=== PATIENT | female | born 1965 | race Caucasian/White ===

== ENCOUNTER 2018-03-04 10:56 | Day surgery (SDC) | payer MEDICAID, SELFPAY ==
--- NOTE | 2018-02-28 11:05 | EKG12_ITS ---
Test Reason : PRE OP Blood Pressure : / mmHG Vent. Rate : 070 BPM Atrial Rate : 070 BPM P-R Int : 172 ms QRS Dur : 088 ms QT Int : 388 ms P-R-T Axes : 075 092 047 degrees QTc Int : 419 ms Normal sinus rhythm Rightward axis Borderline ECG Confirmed by CASEY MERINO ([id number]), photographic editor ELANA HOBSON ([id number]) on 03/11/2018 4:57:50 PM Referred By: Ishaan Ellison Confirmed By:CASEY MERINO
[2018-02-28 11:45] LABS: Hematocrit 40.5 % (37-47); Hemoglobin 13.2 g/dl (12.0-15.0); Mean Corp Hgb Conc 32.6 g/gl (32-36); Mean Corpuscular Hgb 28.9 pg (27.0-32.0); Mean Corpuscular Volume 88.8 fL (81-99); Mean Platelet Vol. 9.2 fl (6.2-12.0); Platelet Count 329 K/mm3 (150-450); RBC Distribution Width CV 13.5 % (11.6-14.6); RBC Distribution Width SD 43.6 fl (35.1-43.9); Red Blood Count 4.56 M/mm3 (4.2-5.4); White Blood Count 7.7 K/mm3 (4.4-11.0)
[2018-02-28 11:50] LABS: Scan Indicated on CBC? Y/N NO
[2018-02-28 12:13] LABS: Anion Gap 6 (5-15); BUN 8 mg/dL (7-18); BUN/Creat Ratio 10.4 RATIO (10-20); Calcium,Total 8.9 mg/dL (8.5-10.1); Chloride 106 mmol/L (98-107); Creatinine, Serum 0.77 mg/dL (0.55-1.02); EST Glomerular Filtration Rate 83 mL/min (>60); Est Glom Filt Rate - Afr Amer 100 mL/min (>60); Glucose 90 mg/dL (74-106); Sodium Level 140 mmol/L (136-145)
--- NOTE | 2018-03-04 10:56 | DT_ITS ---
This patient was seen during an EMR downtime March 04, 2018 - March 11, 2018. This patient may have a combination of paper and electronic documentation or all paper documentation. All documentation is viewable within the e-chart portion of [employer] for each patient visit.
--- NOTE | 2018-03-04 12:35 | RAD_ITS ---
STUDY: X-RAY - RIGHT ANKLE REASON FOR EXAM: ORIF right ankle TECHNIQUE: 2 fluoroscopic view(s) of the ankle. COMPARISON: None. FINDINGS: There is an orthopedic plate and screws transfixing a distal fibular fracture in anatomical alignment and position. 13.3 seconds of fluoroscopy time was used. Electronically Signed: Aroldo Miller MD at 14:15 EDT Tel , Service support , RAD/Ankle 2 Views
== END 2018-03-04 16:50 | disposition home or self-care (01) ==
LOC: SDC 03-06 12:28
PROVIDERS: Physician Assistant; Visit Provider Orthopaedic Surgery
PROC: (CPT 27792; principal; 2018-03-04 12:10)
DX: S82.61XA Displaced fracture of lateral malleolus of right fibula, initial encounter for closed fracture (principal); W19.XXXA Unspecified fall, initial encounter; Y93.9 Activity, unspecified; Y92.009 Unspecified place in unspecified non-institutional (private) residence as the place of occurrence of the external cause
CPT/HCPCS: 27792; 36415; 73600; 73610; 76000; 80048; 85027; 93005; C1713; J7120; J2405

== ENCOUNTER → 2020-01-22 13:42 | Outpatient (CLI) | payer SELFPAY ==
--- NOTE | 2020-01-22 13:47 | US_ITS ---
STUDY: ULTRASOUND OF THE FEMALE PELVIS - COMPLETE REASON FOR EXAM: Female, 54 years old. PELVIC PAIN LMP: The patient is postmenopausal. TECHNIQUE: Transabdominal TECHNICAL QUALITY: Adequate. COMPARISON: None. FINDINGS: The uterus is anteverted and is in a midline position. The uterus measures 7.8 cm x 5.3 cm x 4.2 cm. Normal uterine cervix. The endometrium is thickened and measures 12.5 mm in thickness, and is . There is no demonstrated endometrial mass. There is no demonstrated myometrial mass. I.U.D. - The patient does not have an I.U.D. The right ovary is visualized. The right ovary measures 1.9 cm x 1.3 cm x 1.0 cm. There is no right ovarian cyst or ovarian mass. There is no visualized right adnexal mass or complex lesion. There is normal arterial and normal venous vascularity. The left ovary is visualized. The left ovary measures 1.7 cm x 1.3 cm x 1.1 cm. There is no left ovarian cyst or ovarian mass. There is no visualized left adnexal mass or complex lesion. There is normal arterial and normal venous vascularity. There is no fluid in the cul-de-sac. US/Pelvic (Non ) IMPRESSION: Thickened endometrium. Electronically Signed: Paxton Woods, at 15:24 EDT , Service support ,
== END ==
PROVIDERS: PCP Family Medicine; Referring Provider Family Medicine; Visit Provider Family Medicine
DX: R93.89 Abnormal findings on diagnostic imaging of other specified body structures (principal); R10.2 Pelvic and perineal pain; Z78.0 Asymptomatic menopausal state
CPT/HCPCS: 76856

== ENCOUNTER → 2020-01-22 14:35 | Outpatient (CLI) | payer SELFPAY ==
[2020-01-22 15:05] LABS: Absolute Lymphocyte Count 2.18 X10^3/uL (0.83-4.51); Absolute Neutrophil Count 9.2 X10^3/uL (2.0-7.7); Basophil# 0.05 X10^3/uL; Basophil% 0.4 % (0-1); Eosinophils% 1.6 % (0-5); Hematocrit 41.6 % (37-47); Hemoglobin 13.2 g/dL (12.0-15.0); Lymphocyte # 2.18 X10^3/ul (4.0); Lymphocyte % 17.6 % (19-41); Mean Corp Hgb Conc 31.7 g/dL (32-36); Mean Corpuscular Hgb 28.3 pg (27.0-32.0); Mean Corpuscular Volume 89.1 fL (81-99); Mean Platelet Vol. 9.5 fl (6.2-12.0); Monocyte# 0.69 X10^3/uL; Monocyte% 5.6 % (0-10); NRBC Flagged by Analyzer 0 % (0-5); Neutrophil % 74.5 % (47-70); Platelet Count 315 K/mm3 (150-450); RBC Distribution Width CV 13.2 % (11.6-14.6); RBC Distribution Width SD 42.8 fl (35.1-43.9); Red Blood Count 4.67 M/mm3 (4.2-5.4); White Blood Count 12.4 K/mm3 (4.4-11.0)
[2020-01-22 15:36] LABS: Hemoglobin A1c 6.3 % (4.2-6.3)
[2020-01-22 15:48] LABS: AST(SGOT) 14 U/L (15-37); Alanine Aminotransfer ALT/SGPT 24 U/L (13-56); Albumin, Serum 3.8 g/dL (3.2-5.0); Alkaline Phosphatase 116 U/L (45-117); Anion Gap 5 (5-15); BUN 14 mg/dL (7-18); BUN/Creat Ratio 15.6 RATIO (10-20); Chloride 105 mmol/L (98-107); EST Glomerular Filtration Rate 69 mL/min (>60); Est Glom Filt Rate - Afr Amer 84 mL/min (>60); Globulin 3.8 g/dL (2.2-4.2); Glucose 88 mg/dL (74-106); Potassium 3.6 mmol/L (3.5-5.1); Protein, Total 7.6 g/dL (6.4-8.2); Sodium Level 138 mmol/L (136-145); Thyroid Stim Hormone (TSH) 0.76 uIU/mL (0.358-3.74)
== END ==
PROVIDERS: PCP Family Medicine; Visit Provider Family Medicine
DX: R10.9 Unspecified abdominal pain (principal)
CPT/HCPCS: 36415; 80053; 83036; 84443; 85025

== ENCOUNTER → 2020-02-02 | Outpatient (CLI) | payer SELFPAY ==
--- NOTE | 2020-02-02 | EMB_PTH ---
PATIENT: FIONA TRACY LOC: [facility]#:[id number] AGE/SX: 54/F ROOM: RE02/02/[address]: Dr. Edwin Smith MD : 1965 BED: DIS: 02/02/2020 SPEC #: [id number] RECD: 02/02/20 10:09 STATUS: BEULAH SHON #: [id number] NICOLE: 02/02/20 00:[address]: Edwin Smith DEPT: SURGICAL PATHOLOGY RECD BY: Uday Moses ENTERED: 02/03/20 10:10 SP TYPE: ENDOM BX/C WARREN DR: Dr. Florinda Vázquez MD Tissues: Endometrium, NOS Procedures: Surgery Specimen Level IV HEADER OPERATION: Endometrial biopsy PRE-OP DIAGNOSIS: N95.0 TISSUE SUBMITTED: Endometrial biopsy MICROSCOPIC DIAGNOSIS Endometrium, biopsy: Scant strips of benign superficial glandular mucosa. AM:shaheed 02/04/20 MICROSCOPIC DESCRIPTION Slides are reviewed. GROSS DESCRIPTION Received in fixative is one container labeled with the patient's name and designated EM biopsy. The specimen consists of multiple fragments of mendoza, hemorrhagic soft tissue that in aggregate measure 3 x 2.5 x 0.1 cm. The specimen is totally submitted in one cassette. / SJ:shaheed 02/03/20 TC:5 CPT: 42751
[2020-02-04 16:30] LABS: HPV Reflexed? NOT INDICATED
== END | disposition home or self-care (01) ==
PROVIDERS: PCP Family Medicine; Referring Provider Obstetrics & Gynecology; Visit Provider Obstetrics & Gynecology
DX: Z12.4 Encounter for screening for malignant neoplasm of cervix (principal)
CPT/HCPCS: 88175; 88305; G0145

== ENCOUNTER → 2020-02-16 08:34 | Outpatient (CLI) | payer SELFPAY ==
--- NOTE | 2020-02-16 08:47 | BI_ITS ---
MAMMOGRAPHY - BILATERAL SCREENING REASON FOR EXAM: Female, 55 years old. Routine annual screening examination. PERTINENT HISTORY: Sister with breast cancer. TECHNIQUE: Digital bilateral breast andreea (3D mammographic acquisition) in the CC and MLO projections. 2-D mediolateral oblique (MLO) and craniocaudad (CC) views of both breasts were obtained. CAD: Full Field Digital Mammography with Computer Added Detection was performed. COMPARISON: Comparison is made with prior outside examination dated July 14, 2014. FINDINGS: Breast Composition: There are scattered areas of fibroglandular density. There are no dominant masses or suspicious calcifications. No other significant abnormalities are identified. There has been no significant change since the prior study. BI/SCREEN MAMM (CAD) W/ANDREEA BILAT IMPRESSION: Stable bilateral screening mammogram. Yearly follow-up mammogram recommended. (A) ASSESSMENT CATEGORY: BIRADS Category 1: Negative. A letter regarding these results will be sent to the patient by the facility within 30 days. Approximately 10% of breast cancers are not detected by mammography. A normal mammogram should not delay biopsy of a clinically suspicious abnormality. [id number] Electronically Signed: Paxton Woods, at 10:51 EDT , Service support ,
== END ==
PROVIDERS: PCP Family Medicine; Referring Provider Obstetrics & Gynecology; Visit Provider Obstetrics & Gynecology
DX: Z12.31 Encounter for screening mammogram for malignant neoplasm of breast (principal)
CPT/HCPCS: 77063; 77067

== ENCOUNTER 2020-02-26 05:58 | Day surgery (SDC) | payer SELFPAY ==
[2020-02-20 17:14] LABS: Hematocrit 42.2 % (37-47); Hemoglobin 13.3 g/dL (12.0-15.0); Mean Corp Hgb Conc 31.5 g/dL (32-36); Mean Corpuscular Hgb 28.6 pg (27.0-32.0); Mean Corpuscular Volume 90.8 fL (81-99); Mean Platelet Vol. 9.6 fl (6.2-12.0); Platelet Count 362 K/mm3 (150-450); RBC Distribution Width CV 13.2 % (11.6-14.6); RBC Distribution Width SD 43.7 fl (35.1-43.9); Red Blood Count 4.65 M/mm3 (4.2-5.4); White Blood Count 10.1 K/mm3 (4.4-11.0)
[2020-02-20 17:24] LABS: Prothrombin Time (Protime)PT. 12.7 SECONDS (11.7-14.9)
[2020-02-20 18:24] LABS: ALB/GLOB Ratio 0.9 RATIO (0.9-2.4); AST(SGOT) 14 U/L (15-37); Alanine Aminotransfer ALT/SGPT 23 U/L (13-56); Albumin, Serum 3.7 g/dL (3.2-5.0); Alkaline Phosphatase 108 U/L (45-117); Anion Gap 5 (5-15); BUN 14 mg/dL (7-18); BUN/Creat Ratio 17.1 RATIO (10-20); Chloride 106 mmol/L (98-107); Creatinine, Serum 0.82 mg/dL (0.55-1.02); EST Glomerular Filtration Rate 77 mL/min (>60); Est Glom Filt Rate - Afr Amer 93 mL/min (>60); Globulin 3.9 g/dL (2.2-4.2); Glucose 90 mg/dL (74-106); Potassium 3.9 mmol/L (3.5-5.1); Protein, Total 7.6 g/dL (6.4-8.2); Sodium Level 140 mmol/L (136-145)
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
[2020-02-26] VITALS (9 sets, daily range): BP systolic 107–120; BP diastolic 73–80; PULSE 73–88; RESP 14–18; TEMP 36–36.6; O2SAT 95–97; BMI 40.9
--- NOTE | 2020-02-26 | EMB_PTH ---
PATIENT: FIONA TRACY LOC: [facility] U#:[id number] AGE/SX: 55/F ROOM: RE02/26/[address]: Dr. Edwin Smith MD : 1965 BED: DIS: 02/26/2020 SPEC #: [id number] RECD: 02/26/20 10:50 STATUS: BEULAH BAUTISTARufina #: [id number] NICOLE: 02/26/20 00:[address]: Edwin Smith DEPT: SURGICAL PATHOLOGY RECD BY: Uday Moses ENTERED: 02/26/20 10:50 SP TYPE: ENDOM BX/C WARREN DR: Dr. Florinda Vázquez MD Tissues: Endometrium, NOS Procedures: Surgery Specimen Level IV HEADER OPERATION: Hysteroscopy, D & C PRE-OP DIAGNOSIS: Abnormal findings on diagnostic imaging TISSUE SUBMITTED: Endometrial curettings MICROSCOPIC DIAGNOSIS Endometrium, curettings: Weakly proliferative endometrium with focal cystic change. Fragments of lower uterine endometrium and endocervix with benign cystic change. AM:shaheed 02/27/20 COMMENT Reference is made to the patient's previous endometrial biopsy ([id number]) in which scant strips of benign superficial glandular mucosa was identified. MICROSCOPIC DESCRIPTION Slides are reviewed. GROSS DESCRIPTION Received in fixative is one container labeled with the patient's name and designated endometrial curettings. The specimen consists of multiple fragments of mendoza-pink polypoid tissue. The largest polypoid tissue measures 2.5 x 1 x 0.5 cm. The smaller fragment mixed with mendoza-pink tissue measures in aggregate 2 x 1.5 x 0.3 cm. The entire specimen is submitted in two cassettes as follows: 1 - largest polypoid piece of tissue bisected, 2 - rest of the specimen. / CAITLIN:shaheed 02/26/20 TC:5 CPT: 31678
[2020-02-26] MEDS: Lactated Ringers 1,000 ML 100 ML IV (06:39)
--- NOTE | 2020-02-26 07:28 | PCM.OPRPT ---
Report of Operation Date of Procedure: 02/26/20 Pre-Operative Diagnosis: Postmenopausal Patient with Thickened Endometrial Lining Post-Operative Diagnosis: Endometrial Polyp Surgery/Procedure Performed:: Diagnostic Hysteroscopy, Dilation and Curettage Description of Surgical Findings:: 8 cm endometrial cavity with 2 cm endometrial polyp. Cervix which was high in vagina which would make laparoscopic-assisted vaginal hysterectomy difficult but robotic assisted vaginal hysterectomy possible if hysterectomy were needed. Type of Anesthesia:: MAC Anesthesiologist: Yung Chou Specimen's removed: Endometrial curettings Estimated Blood Loss (mL): Minimal Fluids Replaced: Crystalloid Description of Procedure: Surgeon: Edwin Smith MD, FACOG Indications: This is a 55 year old patient who has the above diagnosis. The patient has been counseled regarding the risk and indications of this procedure including the possibility of bleeding, infection, and injury to surrounding structures such as bowel bladder. All questions were answered and we consider the patient well-informed. Procedure: The patient was taken to the operating room where after induction of general anesthesia, she was placed in the dorsolithotomy position and prepped and draped in the usual sterile fashion. Anterior cervix was grasped with the tenaculum and dilated to about 4-5 mm. A 3 mm hysteroscope was placed in the uterus of the above findings were noted. Cervix was dilated to about 7-8 mm and uterus was gently curetted removing all contents. Hysteroscope was reinserted and all material was noted to be removed. In the course of the procedure approximately 100 cc of saline distending media was used and virtually all of this was recovered. Patient tolerated procedure well was taken to recovery room in satisfactory condition sponge instrument and needle counts were all reportedly correct. Estimated blood loss for the case was minimal. Specimens to pathology was endometrial curettings Complications: None Grafts/Implants Used: None - Complications None - Admit VTE Documentation VTE Present on Admission: Yes VTE Mechan Device Prophylaxis: SCD's
--- NOTE | 2020-02-26 07:31 | DCINST_ITS ---
Discharge Diet: No Restrictions Discharge Activity: Return to Normal Activity, May Shower, May Take a Tub Bath - in 2 weeks. May resume sexual activity in: 1-2 weeks Call your doctor if you observe: Fever of 101 or Higher, Inability to urinate, Inability to have a bowel movement, Using more than one pad per hour Allergies/Adverse Reactions: Allergies No Known Allergies Allergy (Verified 02/19/20 08:46) Medications to take at Discharge Calcium Carbonate [Calcium] 1,000 mg PO DAILY 02/19/20 Primary Care Physician: Florinda Vázquez MD [Primary Care Provider] - Test Results: Test results from this visit will be discussed in further detail at your follow- up appointment, if applicable. Please Follow Up With: Edwin Smith MD When: 2 to 3 weeks
[2020-02-26] MEDS: Lubricating Jelly 60 GM Tube 30 GM TOPICAL (07:41)
== END 2020-02-26 09:06 | disposition home or self-care (01) ==
LOC: SDC 06:00 → AC 06:00
PROVIDERS: PCP Family Medicine; Referring Provider Obstetrics & Gynecology; Visit Provider Obstetrics & Gynecology
PROC: 0UDB8ZZ Extraction of Endometrium, Via Natural or Artificial Opening Endoscopic (ICD-10-PCS; CPT 58558; principal; 2020-02-26 07:20)
DX: N84.0 Polyp of corpus uteri (principal); Z78.0 Asymptomatic menopausal state; Z11.59 Encounter for screening for other viral diseases
CPT/HCPCS: 58558; 36415; 80053; 85027; 85610; 85730; 86850; 86900; 86901; 87635; 88305; G2023; J7120; J2405; U0004

== ENCOUNTER → 2022-08-29 | Outpatient (CLI) | payer SELFPAY ==
[2022-09-04 20:40] LABS: HPV APTIMA, High Risk Negative (Negative)
== END | disposition home or self-care (01) ==
PROVIDERS: PCP Family Medicine; Visit Provider Obstetrics & Gynecology
DX: Z12.4 Encounter for screening for malignant neoplasm of cervix (principal); Z78.0 Asymptomatic menopausal state
CPT/HCPCS: 87624; 88175; G0145

== ENCOUNTER → 2022-09-15 | Outpatient (CLI) | payer SELFPAY ==
--- NOTE | 2022-09-15 09:03 | BI_ITS ---
MAMMOGRAPHY - BILATERAL SCREENING REASON FOR EXAM: Female, 57 years old. Routine annual screening examination. PERTINENT HISTORY: Sisters with breast cancer. TECHNIQUE: Digital bilateral breast andreea (3D mammographic acquisition) in the CC and MLO projections. 2-D mediolateral oblique (MLO) and craniocaudad (CC) views of both breasts were obtained. CAD: Full Field Digital Mammography with Computer Added Detection was performed. COMPARISON: Comparison is made with prior study dated 02/16/2020. FINDINGS: Breast Composition: There are scattered areas of fibroglandular density. There are no dominant masses or suspicious calcifications. No other significant abnormalities are identified. There has been no significant change since the prior study. BI/SCRN MAMM (CAD)W/ANDREEA BILAT IMPRESSION: Stable bilateral screening mammogram. Yearly follow-up mammogram recommended. (A) ASSESSMENT CATEGORY: BIRADS Category 1: Negative. A letter regarding these results will be sent to the patient by the facility within 30 days. Approximately 10% of breast cancers are not detected by mammography. A normal mammogram should not delay biopsy of a clinically suspicious abnormality. [id number] Electronically Signed: Paxton Woods MD at 10:51 EST ,
== END | disposition home or self-care (01) ==
PROVIDERS: PCP Family Medicine; Visit Provider Obstetrics & Gynecology
DX: Z12.31 Encounter for screening mammogram for malignant neoplasm of breast (principal); Z80.3 Family history of malignant neoplasm of breast
CPT/HCPCS: 77063; 77067

== ENCOUNTER → 2022-10-24 | Outpatient (CLI) | payer SELFPAY ==
[2022-10-24 10:20] LABS: Anion Gap 5 (5-15); BUN 15 mg/dL (7-18); BUN/Creat Ratio 14.4 RATIO (10-20); Chloride 106 mmol/L (98-107); Creatinine, Serum 1.04 mg/dL (0.55-1.02); EST Glomerular Filtration Rate 58 mL/min (>60); Est Glom Filt Rate - Afr Amer 70 mL/min (>60); Glucose 118 mg/dL (74-106); Potassium 3.9 mmol/L (3.5-5.1); Sodium Level 139 mmol/L (136-145)
== END | disposition home or self-care (01) ==
PROVIDERS: PCP Family Medicine; Referring Provider Urology; Visit Provider Urology
DX: R10.9 Unspecified abdominal pain (principal)
CPT/HCPCS: 36415; 80048

== ENCOUNTER → 2022-11-07 | Outpatient (CLI) | payer SELFPAY ==
--- NOTE | 2022-11-07 15:54 | CT_ITS ---
INDICATION: L FLANK PAIN. PRIOR APPY AND TUBAL LIGATION EXAMINATION: CT ABDOMEN AND PELVIS WITH AND WITHOUT CONTRAST - CT Abdomen And Pelvis WO/W Contrast Injection TECHNIQUE: Helically acquired images were obtained of the abdomen and pelvis both before and after IV contrast. A radiation dose optimization technique was used for this scan. IV Contrast dosage and agent: 97 mL Isovue 300 Oral contrast: Redicat COMPARISON: None. FINDINGS: LOWER CHEST: Lung bases are clear. No cardiomegaly or pericardial effusion. LIVER: Homogeneous. No focal mass. GALLBLADDER AND BILIARY TREE: Several calcified gallstones. No gallbladder distension or wall edema. No intra- or extrahepatic biliary ductal dilation. PANCREAS: No focal cystic or solid mass. SPLEEN: Normal size without focal cystic or solid mass. ADRENAL GLANDS: Small left adrenal adenoma. KIDNEYS AND URETERS: Normal renal size and position. Bilateral extrarenal pelves. No hydronephrosis. PERITONEUM: No ascites or free air. No other fluid collection. BOWEL: Prior appendectomy. No stomach or bowel distension. Enteric contrast reaches the hepatic flexure. No focal inflammatory change. LYMPH NODES: No enlarged mesenteric or retroperitoneal lymph nodes. VESSELS: Aorta is non-dilated. URINARY BLADDER: Unremarkable. REPRODUCTIVE ORGANS: No pelvic masses. ABDOMINAL WALL: No discrete abdominal or pelvic wall hernia. BONES: Focal ossification of the anterior longitudinal ligament at L5 and S1. Normal thoracolumbar vertebral alignment. CT/CT Abd/Pelvis W/WO Contrast IMPRESSION: No finding to explain left flank pain. No acute abnormal finding the abdomen or pelvis. Electronically Signed: Neville Kline MD at 23:16 EST ,
== END | disposition home or self-care (01) ==
LOC: CT 15:53
PROVIDERS: PCP Family Medicine; Referring Provider Urology; Visit Provider Urology
DX: R10.32 Left lower quadrant pain (principal)
CPT/HCPCS: 74178

== ENCOUNTER → 2023-11-05 | Outpatient (CLI) | payer OTHER, SELFPAY ==
[2023-11-05 10:48] LABS: Mucous, Urine 0 SEEN /hpf (<or=2+)
--- OUTSIDE RECORDS SUMMARY | 2023-11-05 10:49 | XMS RPT_ITS | CCD ---
Author Name Unknown Address [address] [place] [address] Organization [facility] Care Team Providers Care Nut Sorter Name Role Phone YEH, NIKOLASWAN Unavailable Unavailable YEH, MARWAN Unavailable Unavailable NO, DOCTOR ON Unavailable Unavailable YEH, MARWAN Unavailable Unavailable NO, DOCTOR ON Unavailable Unavailable JANAS, FILIBERTO PAC Unavailable Unavailable JANAS, FILIBERTO PAC Unavailable Unavailable JANAS, FILIBERTO PAC Unavailable Unavailable NO, DOCTOR ON Unavailable Unavailable Results Test Name Value Interpretation Reference Range Facil ity Encounters Encounter Date Encounter Type Care Provider Facility Start: 04-09-2018 Ambulatory FILIBEROT MARKS [facility] Start: 02-23-2018 End: 02-23-2018 Emergency department patient visit NOEL YEH [facility] Payers Date Payer Category Payer Policy ID Unknown [id number] Summary Purpose Family History No Family History Records Found Advance Directives No Advanced Directives Records Found Additional Source Comments INFORMATION SOURCE (unrecogn ized section and content) FOR RECORDS PERTAINING TO PATIENTS WHO ARE OR HAVE BEEN ENROLLED IN A CHEMICAL DEPENDENCY/SUBSTANCEABUSE PROGRAM, SOME INFORMATION MAY BE OMITTED. This clinical summary was aggregated from multiple sources. Caution should be exercised in using it in the provision of clinical care. This summary normalizes information from multiple sources, and as a consequence, information in this document may materially change the coding, format and clinical context of patient data. In addition, data may be omitted in some cases. CLINICAL DECISIONS SHOULD BE BASED ON THE PRIMARY CLINICAL RECORDS. [employer] provides no warranty or guarantee of the accuracy or completeness of information in this document.
[2023-11-05 10:58] LABS: Color, Urine Yellow (Yellow); Glucose, Dipstick Normal (Normal); Ketone-Dipstick Negative (Negative); Leukocyte Esterase-Dipstick 100 /ul (Negative); Nitrite-Dipstick Negative (Negative); Occult Blood-Urine 10 /ul (Negative); Protein-Dipstick Negative (Negative); Specific Gravity, Urine 1.015 (1.002-1.030); Urine Bilirubin Dipstick Negative (Negative); Urine Clarity Sl. Cloudy (Clear); Urine Urobilinogen Normal (Normal)
[2023-11-05 11:26] LABS: Bacteria 1+ /hpf (None Seen); Red Blood Cells-Urine 0-5 SEEN /hpf (0-5); Squamous Epithelial Cells - UA 0-5 SEEN /hpf (5-10); White Blood Cells 10-25 SEEN /hpf (0-5)
== END | disposition home or self-care (01) ==
LOC: LABSPEC 10:11
PROVIDERS: PCP Family Medicine; Referring Provider Physician Assistant; Visit Provider Physician Assistant
DX: R30.0 Dysuria (principal)
CPT/HCPCS: 81001; 87077; 87086; 87088; 87186

== ENCOUNTER 2024-01-18 13:47 | Emergency (ER) | payer OTHER, SELFPAY ==
[2024-01-18 13:49] VITALS: BP 111/62; PULSE 115; RESP 18; TEMP 35.9; O2SAT 99; BMI 38.9
--- NOTE | 2024-01-18 14:43 | EX.ED.DYSGE1 ---
HPI History of Present Illness Chief Complaint: Abd Pain Informant: patient Narrative Narrative: 58-year-old female presenting to the emergency room with diarrhea. Patient states on January 06 she began to have chills and diarrhea along with nausea. She states it persisted for days seem to get slowly better but has returned. She notes lower abdominal discomfort but mostly on the left side. She describes the stool as green currently. No fevers. No known sick contacts. Patient denies any history of inflammatory bowel conditions or diverticulitis. She has not had prior cholecystectomy. PFSH PFSH Medical History no medical history Home Medications calcium carbonate 1,000 mg PO DAILY 02/19/20 [History Last Taken Unknown] ciprofloxacin HCl 500 mg tablet 500 mg PO BID #14 tabs 11/05/23 [Rx Last Taken Unknown] Allergy/AdvReac Type Severity Reaction Status Date / Time No Known Allergies Allergy Verified 01/18/24 13:49 Social History Smoking Status: Never smoker ROS ROS ED Constitutional Constitutional ED: Reports chills; Denies fever(s) or weight loss Eyes Eyes: Denies change in vision or diplopia ENT ENT ED: Denies ear pain, rhinorrhea or sore throat Cardiovascular Cardiovascular: Denies chest pain, orthopnea, palpitations or racing heartbeat Respiratory/Chest Respiratory/Chest: Denies cough, dyspnea or orthopnea Gastrointestinal Gastrointestinal: Reports abdominal pain, diarrhea and nausea; Denies vomiting Genitourinary Genitourinary ED: Denies dysuria, hematuria or urinary frequency Musculoskeletal Musculoskeletal: Denies arthralgias or myalgias Integumentary Denies abscess or rash Neurologic Neurologic: Denies headache(s) or weakness Psychiatric Psychiatric: Denies anxiety, depression, suicidal ideation or suicidal thoughts Endocrine Endocrinology: Denies polydipsia, polyphagia or polyuria Allergic/Immunologic Allergic/Immunologic ED: Denies mouth swelling, tongue swelling or urticaria EXAM Physical Exam Const Vital Signs: 01/18/24 13:49 01/18/24 15:48 01/18/24 17:00 Temperature 96.7 F L Temperature Source Temporal Pulse Rate 115 H 89 90 Respiratory Rate 18 16 16 Blood Pressure 111/62 112/74 Blood Pressure Mean 78 86 Pulse Ox 99 97 98 Oxygen Delivery Method Room Air Room Air Room Air Positive well nourished and well developed General Appearance ED: well developed HEENT Reports normocephalic, head/scalp atraumatic and dry mucous membranes Mouth ED: Yes dry mucous membranes Mouth: dry mucous membranes Eyes PERRL and EOMs intact bilaterally Neck no lymphadenopathy, supple and no JVD Resp normal respiratory effort and clear to auscultation bilaterally Cardio regular rate, regular rhythm and no murmurs Rate: tachycardic GI normal to inspection, nondistended, normoactive bowel sounds and non-tender Palpation: soft Back/Spine no CVA tenderness and normal ROM Extremity normal to inspection General Extremety ED: Negative for edema General Extremity: Negative for edema Neuro oriented x3 and CN's II-XII intact bilaterally Sensorium / Orientation: alert Motor Exam: strength 5/5 throughout Psych mental status grossly normal Mood & Affect: Negative for depressed or tearful Skin no rashes or lesions noted and no wounds MDM MDM MDM Narrative Medical decision making narrative: Patient received IV fluids. White count is 16. Hemoglobin 16.4 platelet count of 497. BUN of 18 creatinine 0.95. Lipase of 28 liver enzymes normal urinalysis with 150 ketones 2+ bacteria. She is not having dysuria there is 0-5 white cells [address] of the pelvis demonstrate any obvious colonic thickening or pericolonic inflammation. Patient received a dose of oxycodone. She states that while it did help the abdominal pain she definitely did not like the way it made her feel and does not wish to have any at home. She was unable to provide us a stool specimen. She has been able to eat a little something while she was here. I wonder if she has norovirus with dehydration? At this point patient will be discharged home. Patient to return if worsening or not improving. History & Record Review Discussion w/independent historian: Patient Lab Data Attestation: I reviewed the patient's lab results. Labs: Laboratory Results - last 24 hr 01/18/24 01/18/24 14:55 15:05 WBC 16.0 H RBC 5.70 H Hgb 16.4 H Hct 49.8 H MCV 87.4 MCH 28.8 MCHC 32.9 RDW Std Deviation 41.9 RDW Coeff of Lei 13.2 Plt Count 497 H MPV 9.2 Immature Gran % (Auto) 0.400 Neut % (Auto) 74.7 H Lymph % (Auto) 20.0 Yancey % (Auto) 3.9 Eos % (Auto) 0.6 Baso % (Auto) 0.4 Absolute Neuts (auto) 11.9 H Absolute Lymphs (auto) 3.20 Nucleated RBC % 0 Sodium 139 Potassium 3.8 Chloride 105 Carbon Dioxide 25.0 Anion Gap 9 BUN 18 Creatinine 0.95 Estim Creat Clear Calc 77.20 Est GFR (MDRD) Af Amer 78 Est GFR (MDRD) Non-Af 64 BUN/Creatinine Ratio 19.0 Glucose 108 H Calcium 8.7 Total Bilirubin 0.50 Direct Bilirubin 0.18 AST 21 ALT 35 Alkaline Phosphatase 80 Total Protein 7.0 Albumin 3.3 Globulin 3.7 Albumin/Globulin Ratio 0.9 Lipase 28 Urine Color Yellow Urine Clarity Clear Urine pH 5.0 Ur Specific [place] 1.025 Urine Protein 15 H Urine Glucose (UA) Normal Urine Ketones 150 A* Urine Occult Blood Negative Urine Nitrite Negative Urine Bilirubin 1 H Urine Urobilinogen Normal Ur Leukocyte Esterase 100 H Urine RBC 0 SEEN Urine WBC 0-5 SEEN Ur Squamous Epith Cells 0-5 SEEN Urine Bacteria 2+ Urine Mucus 1+ Radiography Diagnostic Testing: Clinical Impression(s) from Imaging Studies Abdomen/Pelvis CT 01/18/24 15:53 IMPRESSION: No definitive evidence for small bowel obstruction or acute colitis.. Cholelithiasis without definitive evidence for acute cholecystitis Tiny left ovarian cyst Other findings as above Electronically Signed: Dylan Ortiz MD at 16:19 EDT Reading Location ID and State: [facility] / [place] Tel , Service support , Discharge Plan Triage Chief Complaint: Abd Pain ED Provider: Samson Coyle Dx/Rx/DC Orders Prescriptions: No Action ciprofloxacin HCl 500 mg tablet 500 mg PO BID Qty: 14 0RF calcium carbonate 500 MG tablet 1,000 mg PO DAILY Primary Care Provider: Florinda Vázquez Referrals: Florinda Vázquez MD [Primary Care Provider] -
[2024-01-18 15:05] LABS: Absolute Neutrophil Count 11.9 X10^3/uL (2.0-7.7); Basophil# 0.06 X10^3/uL; Basophil% 0.4 % (0-1); Eosinophils% 0.6 % (0-5); Hematocrit 49.8 % (37-47); Hemoglobin 16.4 g/dL (12.0-15.0); Mean Corp Hgb Conc 32.9 g/dL (32-36); Mean Corpuscular Hgb 28.8 pg (27.0-32.0); Mean Corpuscular Volume 87.4 fL (81-99); Mean Platelet Vol. 9.2 fl (6.2-12.0); Monocyte# 0.63 X10^3/uL; Monocyte% 3.9 % (0-10); NRBC Flagged by Analyzer 0 % (0-5); Neutrophil # 11.94 X10^3/uL (2.7-7.7); Neutrophil % 74.7 % (47-70); Platelet Count 497 K/mm3 (150-450); RBC Distribution Width CV 13.2 % (11.6-14.6); RBC Distribution Width SD 41.9 fl (35.1-43.9)
[2024-01-18] MEDS: Ondansetron 4 MG/2 ML Vial IV (15:05)
[2024-01-18] MEDS: 0.9% Normal Saline (1000mL) 1,000 ML 999 ML IV ×3 (15:05→18:03)
[2024-01-18 15:08] LABS: Red Blood Cells-Urine 0 SEEN /hpf (0-5)
[2024-01-18 15:11] LABS: Color, Urine Yellow (Yellow); Glucose, Dipstick Normal (Normal); Leukocyte Esterase-Dipstick 100 /ul (Negative); Nitrite-Dipstick Negative (Negative); Occult Blood-Urine Negative /ul (Negative); Protein-Dipstick 15 mg/dl (Negative); Specific Gravity, Urine 1.025 (1.002-1.030); Urine Clarity Clear (Clear); Urine Urobilinogen Normal (Normal)
[2024-01-18 15:13] LABS: Urine Bilirubin Dipstick 1 mg/dL (Negative)
[2024-01-18 15:14] LABS: Ketone-Dipstick 150 mg/dl (Negative)
[2024-01-18 15:20] LABS: Bacteria 2+ /hpf (None Seen); Squamous Epithelial Cells - UA 0-5 SEEN /hpf (5-10); White Blood Cells 0-5 SEEN /hpf (0-5)
[2024-01-18 15:21] LABS: Mucous, Urine 1+ /hpf (<or=2+)
[2024-01-18 15:44] LABS: ALB/GLOB Ratio 0.9 RATIO (0.9-2.4); AST(SGOT) 21 U/L (15-37); Alanine Aminotransfer ALT/SGPT 35 U/L (13-56); Albumin, Serum 3.3 g/dL (3.2-5.0); Alkaline Phosphatase 80 U/L (45-117); Anion Gap 9 (5-15); BUN 18 mg/dL (7-18); Bilirubin, Direct 0.18 mg/dL (0.00-0.30); Calcium,Total 8.7 mg/dL (8.5-10.1); Chloride 105 mmol/L (98-107); Creatinine, Serum 0.95 mg/dL (0.55-1.02); EST Glomerular Filtration Rate 64 mL/min (>60); Est Glom Filt Rate - Afr Amer 78 mL/min (>60); Globulin 3.7 g/dL (2.2-4.2); Glucose 108 mg/dL (74-106); Lipase 28 U/L (13-75); Potassium 3.8 mmol/L (3.5-5.1); Sodium Level 139 mmol/L (136-145)
[2024-01-18 15:48] VITALS: PULSE 89; RESP 16; O2SAT 97
--- NOTE | 2024-01-18 15:53 | CT_ITS ---
STUDY: CT ABDOMEN AND PELVIS WITH CONTRAST REASON FOR EXAM: Female, 58 years old. colitis RADIATION DOSAGE (If Supplied By Facility): CTDIvol = ( 19.28 ) mGy, DLP = ( 1181.43 ) mGycm TECHNIQUE: Transaxial images were obtained from the dome of the diaphragm to the symphysis pubis without oral contrast. IV 100mL Isovue-300 was administered. Sagittal and coronal images were reconstructed. Individualized dose optimization techniques were used for this CT. COMPARISON: November 07, 2022 FINDINGS: There is minor atelectasis within the dependent portion of the lungs.. The visualized portions of the heart are within normal limits. Mild nonspecific fatty infiltrated liver without mass or bile duct dilatation. Multiple calcified gallstones without evidence for acute cholecystitis Normal spleen. Normal pancreas. Right adrenal is normal. There is a small nodule left adrenal which is slightly hyperattenuated measuring 2.2 x 1.17 cm likely benign unchanged since previous exam Normal right kidney. Normal left kidney. Normal visualized stomach. Normal small intestine. Examination of the colon is limited due to lack of contrast opacification and diffuse collapse of the bowel loops... There is no significant thickening of the hankins of the colon at this time nor is there evidence for inflammatory changes in the fat to suggest colitis. Chronic colitis is not entirely excluded. No evidence for acute appendicitis. Normal abdominal aorta. Normal inferior vena cava. Normal retroperitoneum. Normal urinary bladder. Tiny left ovarian cyst noted Normal abdominal wall. Lumbar spine demonstrates mild spondylosis CT/Abdomen/Pelvis W IV Cont ONLY IMPRESSION: No definitive evidence for small bowel obstruction or acute colitis.. Cholelithiasis without definitive evidence for acute cholecystitis Tiny left ovarian cyst Other findings as above Electronically Signed: Dylan Ortiz MD at 16:19 EDT ,
[2024-01-18] MEDS: oxyCODONE 5 MG Tablet PO (16:46)
[2024-01-18 17:00] VITALS: BP 112/74; PULSE 90; RESP 16; O2SAT 98
[2024-01-18 19:21] VITALS: BP 117/68; PULSE 92; RESP 16; TEMP 36.1; O2SAT 93
== END 2024-01-18 19:26 | disposition home or self-care (01) ==
PROVIDERS: Emergency Provider Emergency Medicine; PCP Family Medicine; Visit Provider Emergency Medicine
DX: R19.7 Diarrhea, unspecified (principal); R10.32 Left lower quadrant pain
CPT/HCPCS: 74177; 80053; 81001; 82248; 83690; 85025; 96361; 96374; 99283; J7030; Q9967; A4216; J2405

== ENCOUNTER → 2024-01-23 | Outpatient (CLI) | payer OTHER, SELFPAY | END | disposition home or self-care (01) | LOC: LABSPEC 13:13 | PROVIDERS: PCP Family Medicine; Referring Provider Family Medicine; Visit Provider Family Medicine | DX: R19.7 Diarrhea, unspecified (principal) | CPT/HCPCS: 83630; 87177; 87209; 87493; 87506 ==

== ENCOUNTER → 2024-02-12 | Outpatient (CLI) | payer OTHER, SELFPAY ==
--- NOTE | 2024-02-12 10:01 | BI_ITS ---
MAMMOGRAPHY - BILATERAL SCREENING REASON FOR EXAM: Female, 58 years old. Routine annual screening examination. PERTINENT HISTORY: Sisters with breast cancer. TECHNIQUE: Digital bilateral breast andreea (3D mammographic acquisition) in the CC and MLO projections. 2-D mediolateral oblique (MLO) and craniocaudad (CC) views of both breasts were obtained. CAD: Full Field Digital Mammography with Computer Added Detection was performed. COMPARISON: Comparison is made with prior study dated September 15, 2022 and February 16, 2020. FINDINGS: Breast Composition: There are scattered areas of fibroglandular density. There are no dominant masses or suspicious calcifications. No other significant abnormalities are identified. There has been no significant change since the prior study. BI/SCRN MAMM (CAD)W/ANDREEA BILAT IMPRESSION: Stable bilateral screening mammogram. Yearly follow-up mammogram recommended. (A) ASSESSMENT CATEGORY: BIRADS Category 1: Negative. A letter regarding these results will be sent to the patient by the facility within 30 days. Approximately 10% of breast cancers are not detected by mammography. A normal mammogram should not delay biopsy of a clinically suspicious abnormality. [id number] Electronically Signed: Paxton Woods MD at 12:32 EDT ,
== END | disposition home or self-care (01) ==
LOC: OPBI 09:58
PROVIDERS: PCP Family Medicine; Referring Provider Family Medicine; Visit Provider Family Medicine
DX: Z12.31 Encounter for screening mammogram for malignant neoplasm of breast (principal)
CPT/HCPCS: 77063; 77067

== ENCOUNTER → 2024-06-03 | Outpatient (CLI) | payer OTHER, SELFPAY ==
--- NOTE | 2024-06-03 | MISC_PTH ---
PATIENT: FIONA TRACY LOC: [facility] #:[id number] AGE/SX: 59/F ROOM: RE06/03/[address]: Dr. Florinda Vázquez MD : 1965 BED: DIS: 06/03/2024 SPEC #: [id number] RECD: 06/04/24 08:35 STATUS: BEULAH BAUTISTARufina #: [id number] NICOLE: 06/03/24 00:[address]: Florinda Vázquez DEPT: SURGICAL PATHOLOGY RECD BY: Uday Moses Tissues: Labial gland, NOS Procedures: Surgery Specimen Level IV HEADER OPERATION: Punch biopsy PRE-OP DIAGNOSIS: Irregular pigmented nevus TISSUE SUBMITTED: Right labia majora MICROSCOPIC DIAGNOSIS Right labia majora, biopsy: Consistent with seborrheic keratosis. AM/ 06/05/2024 COMMENT Case has been reviewed in consultation with Dr. Marion who concurs with the above diagnosis. IDC:[id number] MICROSCOPIC DESCRIPTION Slides are reviewed. GROSS DESCRIPTION Received in fixative is one container labeled with the patient's name and designated Punch biopsy. The specimen consists of a punch biopsy of brownish-blackish skin measuring 0.2cm in diameter and <0.1cm in thickness. The entire specimen is submitted in one cassette. 06/04/2024 TC:5 CPT:34404
== END | disposition home or self-care (01) ==
PROVIDERS: PCP Family Medicine; Referring Provider Family Medicine; Visit Provider Family Medicine
DX: L82.1 Other seborrheic keratosis (principal)
CPT/HCPCS: 88305

== ENCOUNTER → 2024-06-10 | Outpatient (CLI) | payer OTHER, SELFPAY ==
--- NOTE | 2024-06-10 14:33 | US_ITS ---
INDICATION: HX ENDOMETRIAL HYPERPPLASIA,VAG BLEEDING EXAMINATION: Ultrasound US Pelvis Non-OB Complete TECHNIQUE: Transabdominal pelvic ultrasound was performed. Grayscale, spectral waveform, and color flow Doppler evaluation of the adnexa. COMPARISON: Ultrasound 01/22/2020 FINDINGS: UTERUS: 8.0 cm length. Normal configuration. ENDOMETRIUM: Not thickened. 3 mm. Previously measured 12.5 mm. OVARIES: Right ovary: 2.0 x 1.3 x 1.6 cm. Left ovary: 2.2 x 1.2 x 2.2 cm. Simple cyst: 1.3 x 0.9 x 1.3 cm. The ovaries appear unremarkable. Vascular flow demonstrated. No findings to suggest ovarian torsion. FREE FLUID: None. US/Pelvic (Non ) IMPRESSION: No endometrial thickening. Electronically Signed: Cher Woods MD at 8:18 EDT ,
== END | disposition home or self-care (01) ==
PROVIDERS: PCP Family Medicine; Referring Provider Family Medicine; Visit Provider Family Medicine
DX: N95.0 Postmenopausal bleeding (principal)
CPT/HCPCS: 76856